=== PATIENT | female | born 1995 | race Caucasian/White ===

== ENCOUNTER 2016-09-07 07:40 | Emergency (ER) | END 2016-09-07 08:45 | disposition home or self-care (01) | DX: R05 Cough (principal); R09.81 Nasal congestion; R50.9 Fever, unspecified ==

== ENCOUNTER 2017-09-28 11:33 | Emergency (ER) | END 2017-09-28 12:15 | disposition home or self-care (01) ==

== ENCOUNTER 2018-01-12 19:48 | Emergency (ER) | END 2018-01-12 22:45 | disposition home or self-care (01) ==

== ENCOUNTER 2018-04-06 08:38 | Emergency (ER) | END 2018-04-06 09:24 | disposition home or self-care (01) ==